=== PATIENT | female | born 1965 | race Caucasian/White ===

== ENCOUNTER 2020-05-01 15:07 | Outpatient (REF) | payer SELFPAY ==
[2020-05-01 15:26] LABS: COVID-19 Test Negative (Negative)
== END 2020-05-01 15:08 | disposition home or self-care (01) ==
LOC: HO.LAB 15:07
PROVIDERS: Visit Provider Internal Medicine
DX: Z20.828 Contact with and (suspected) exposure to other viral communicable diseases (principal)
CPT/HCPCS: 87635

== ENCOUNTER 2020-05-05 10:59 | Outpatient (REF) | payer SELFPAY ==
[2020-05-05 11:32] LABS: COVID-19 Test Negative (Negative)
== END 2020-05-05 11:00 | disposition home or self-care (01) ==
LOC: HO.LAB 10:59
PROVIDERS: Visit Provider Internal Medicine
DX: Z20.828 Contact with and (suspected) exposure to other viral communicable diseases (principal)
CPT/HCPCS: 87635

== ENCOUNTER 2021-07-24 07:13 | Emergency (ER) | payer OTHER, SELFPAY ==
[2021-07-24 07:17] VITALS: BP 162/78; PULSE 85; RESP 18; TEMP 35.8; O2SAT 100; BMI 25.0
--- NOTE | 2021-07-24 08:04 | ED_ITS ---
HPI - Eye Problem General Chief complaint: Skin/Abscess/Foreign Body Stated complaint: swollen r eye Time Seen by Provider: 07/24/21 08:00 Source: patient Mode of arrival: ambulatory Limitations: no limitations History of Present Illness HPI Narrative: Susan comes today to the hospital complaining of periorbital sw elling and redness around her right eye. Patient states that 4 days ago, patient had her eyebrows waxed. The next day, patient noted that her upper eyelids started getting erythematous, tender, states that she is so mild drainage coming from the space between the eyebrow and the upper eyelid. Pat kenneth denies fever chills. Patient states that the inside of her eye does not hurt, she has not seen any eye discharge. Patient denies seeing any vesicles. Patient states her vision is within normal limits Related Data Previous Rx's Medication Instructions Recorded amoxicillin 875 mg-potassium 1 tab PO BID #14 tab 07/24/21 clavulanate 125 mg tablet (Augmentin) sulfamethoxazole 800 1 tab PO BID #14 tab 07/24/21 mg-trimethoprim 160 mg tablet (Bactrim DS) Allergies Allergy/AdvReac Type Severity Reaction Status Date / Time No Known Allergies Allergy Verified 07/24/21 07:24 Review of Systems Review of Systems: Constitutional : No Weight loss, No Fever, No Chills, No Night Sweats, No Fatigue, No Malaise ENT/Mouth : No Hearing loss, No Ear Pain, No Nasal Congestion, No Sinus Pain, No Hoarseness, No sore throat, No Rhinorrhea, No Swallowing Difficulty Eyes: No Eye Pain, palpebral swelling, redness, no foreign body sensation Cardiovascular : No Chest Pain, No SOB, No Dyspnea on Exertion, No Orthopnea, No Edema, No Palpitations Respiratory : No Cough, No Sputum, No Wheezing, No Smoke Exposure, No Dyspnea Gastrointestinal : No Nausea, No Vomiting, No Diarrhea, No Constipation, No abdominal Pain, No Hematochezia, No Melena Genitourinary : no irregular bleeding, No Dysuria, No Urinary Frequency, No Hematuria, No Urinary Incontinence, No Urgency, No Flank Pain, No Urinary Flow Changes, No Hesitancy Musculoskeletal : No joint pain, No Myalgias, No Joint Swelling Skin : No Skin Lesions, No rash Neuro : No Weakness, No Numbness, No Paresthesias, No Loss of Consciousness, No Dizziness, No Headache Psych : No Anxiety/Panic, No Depression, No SI/HI/AH/VH, No Social Issues, Heme/Lymph: No Bruising, No Bleeding,No Lymphadenopathy Endocrine : No Polyuria, No Polydipsia, No Temperature Intolerance [facility] Past Medical History Medical History HTN (hypertension) Surgical History H/O: hysterectomy Social History Social History Advance Directives: No Advance Directives Information Provided: No Physical Exam Vital Signs: Vital Signs: Last Vital Signs Temp 96.5 F L 07/24/21 07:17 Pulse 85 07/24/21 07:17 Resp 18 07/24/21 07:17 BP 162/78 H 07/24/21 07:17 Pulse Ox 100 07/24/21 07:17 BMI result Body Mass Index 25.0 Const: Other: Appearance: Alert. Oriented X3. No acute distress. Eyes: Pupils equal, round and reactive to light. Cellulitis around the eye. Patient has normal range of motion with eye movements, painless, no erythema in the conjunctiva or sclera ENT: Pharynx normal. Neck: Normal inspection. Neck supple. No lymph nodes noted. No crepitus CVS: Normal heart rate and rhythm. Pulses normal. Normal S1 and S2 Respiratory: No respiratory distress. Breath sounds normal. No Wheezing. No rales Abdomen: Soft and nontender. No rigidity. No distention. Skin: Skin warm and dry. Normal skin color. Normal skin turgor. Extremities: No lower extremity edema. No lower extremity edema. No Lacerations. No Rash Neuro: Oriented X 3. No motor deficit. No sensory deficit. Moving all exter mities. No slurred speech. Course Course Course Narrative: I discussed the physical exam with the patient, patient likely has periorbital cellulitis. Patient was given Augmentin and Bactrim. Patient struck to return to the emergency room if she does not improve within 24 hours. DDX: Shingles Discharge Plan Discharge Clinical Impression: Periorbital cellulitis of right eye Patient Disposition: Home, Self-Care Instructions: Periorbital Cellulitis in Adults (ED) Additional Instructions: If your symptoms do not improve within 24 hours, you need to return to the emergency room. Please follow-up with your primary care physician tomorrow. If you have any worsening or new symptoms, please return to the emergency room or call 911 Prescriptions: New amoxicillin-pot clavulanate [Augmentin] 875-125 mg tablet 1 tab PO BID Qty: 14 RF: 0 sulfamethoxazole-trimethoprim [Bactrim DS] 800-160 mg tablet 1 tab PO BID Qty: 14 RF: 0
[2021-07-24] MEDS: Amoxicillin/Potassium Clav 875 MG TABLET PO (08:23)
[2021-07-24] MEDS: Sulfamethox/Trimeth 800/160 TABLET 1 TAB PO (08:23)
--- NOTE | 2021-07-24 08:30 | PC.NURSE ---
PT EVALUATED BY SIMA TENORIO. MEDICATED ORDERED RIGHT EYE SWELLING NOTED. PT UNABLE TO OPEN EYE. AWARE OF NEED FOR F/U WITH PCP OR TO RETURN TO ED IF SYMPTOMS WORSEN.
== END 2021-07-24 08:40 | disposition home or self-care (01) ==
PROVIDERS: Emergency Provider Emergency Medicine; PCP Nurse Practitioner Family
DX: L03.213 Periorbital cellulitis (principal); Z79.899 Other long term (current) drug therapy
CPT/HCPCS: 99283

== ENCOUNTER 2021-07-27 08:36 | Emergency (ER) | payer OTHER, SELFPAY ==
--- NOTE | ~2021-07-27 | CT_ITS ---
EXAMINATION: CT HEAD WITHOUT CONTRAST CLINICAL INFORMATION: Orbital cellulitis COMPARISON: None TECHNIQUE: Contiguous axial imaging was performed from the skull base to vertex without intravenous administration of contrast. This CT examination was performed using dose optimization techniques as appropriate, variously including the following: *Automated exposure control *Adjustment of mA and/or kV according to patient size (this includes techniques or standardized protocols for targeted exams where dose is matched to indication/reason for exam; i.e. extremities or head) *Use of iterative reconstruction technique DLP: 598 mGy-cm FINDINGS: Notable preseptal swelling on the right. No post septal or sinus involvement. There is no evidence of acute intracranial hemorrhage or territorial infarction. No abnormal mass effect or midline shift is seen. Alanis to white matter differentiation is well preserved. No extra-axial fluid collections are identified. The ventricles are normal in size. There is no abnormal attenuation within the brain parenchyma. The osseous structures and soft tissues are normal. The mastoid air cells and visualized portions of the paranasal sinuses are well aerated. CT/CT head/brain wo con IMPRESSION: No acute intracranial pathology. Preseptal right-sided soft tissue swelling presumably related to infection as above.
[2021-07-27 08:40] VITALS: BP 154/94; PULSE 100; RESP 18; TEMP 36.6; O2SAT 97; BMI 25.0
[2021-07-27 09:14] LABS: Hematocrit 38.8 % (37.0-47.0); Hemoglobin 13.1 g/dl (12.0-16.0); Mean Corpuscular HGB Conc 33.8 g/dl (31.0-35.0); Mean Corpuscular Hemoglobin 30.9 pg (27.0-33.0); Mean Corpuscular Volume 91.5 fL (80.0-98.0); Mean Platelet Volume 9.3 fL (9.4-12.3); Platelet Count 377 X10*3/uL (160-400); Red Blood Count 4.24 X10*6/uL (4.20-5.50); Red Cell Distribution Width 13.2 % (11.0-16.0); White Blood Count 10.2 X10*3/uL (4.8-10.8)
[2021-07-27 09:35] LABS: Anion Gap 14 (12-20); Blood Urea Nitrogen 21 mg/dL (9-16); Calcium 10.1 mg/dL (8.4-10.2); Carbon Dioxide 22 mmol/L (22-29); Chloride 103 mmol/L (96-108); Creatinine Clr Calc Pharmacy 49.8; Estimated Glomerular Filt Rate 45; Glucose Random 119 mg/dL (60-115); Potassium 4.1 mmol/L (3.3-5.1); Sodium 135 mmol/L (135-145)
--- NOTE | 2021-07-27 10:44 | ED_ITS ---
HPI - Eye Problem General Chief complaint: Eye Problems Stated complaint: Eye issues Time Seen by Provider: 07/27/21 09:09 Source: patient Mode of arrival: ambulatory History of Present Illness HPI Narrative: 55-year-old female past medical history of HTN, recently treated for periorbital cellulitis on Bactrim and Augmentin since 07/24/21, presenting to the ED complaining of persistent right upper eyelid swelling and pain. Reports compliance with antibiotics. Denies vision change/ loss, blurry vision, pain with EOMs, fever, chills, ear pain, throat pain, drainage from area Onset (ago): day(s) Duration: constant Location: right eye Eye Symptoms: redness and pain Related Data Previous Rx's Medication Instructions Recorded amoxicillin 875 mg-potassium 1 tab PO BID #14 tab 07/24/21 clavulanate 125 mg tablet (Augmentin) sulfamethoxazole 800 1 tab PO BID #14 tab 07/24/21 mg-trimethoprim 160 mg tablet (Bactrim DS) doxycycline hyclate 100 mg tablet 100 mg PO BID 7 Days #14 tab 07/27/21 Allergies Allergy/AdvReac Type Severity Reaction Status Date / Time No Known Allergies Allergy Verified 07/24/21 07:24 Review of Systems Review of Systems: Constitutional: No Fever, No Chills, No Night Sweats, No Fatigue, No Malaise ENT/Mouth: No Hearing loss, No Ear Pain, No Nasal Congestion, No Sinus Pain, No Hoarseness, No sore throat, No Rhinorrhea, No Swallowing Difficulty Eyes: + Eyelid Pain, + Swelling, + Redness, No Foreign Body, No Discharge, No Vision Changes Cardiovascular: No Chest Pain, No SOB, No Palpitations Respiratory: No Cough, No Dyspnea Gastrointestinal: No Nausea, No Vomiting, No Diarrhea, No Constipation, No Abdo saúl pain Genitourinary: No Dysuria, No Urgency, No Flank Pain Musculoskeletal: No joint pain, No Myalgias, No Joint Swelling Skin: No Skin Lesions, No rash Neuro: No Weakness, No Numbness, No Dizziness, No Headache Yes all other systems are reviewed and are negative [facility] Past Medical History Attestation statement: The following information was validated with the patient. Medical History HTN (hypertension) Surgical History H/O: hysterectomy Social History Social History Advance Directives: No Advance Directives Information Provided: No Patient : No Physical Exam Vital Signs: Vital Signs: Last Vital Signs Temp 97.8 F 07/27/21 08:40 Pulse 100 07/27/21 08:40 Resp 18 07/27/21 08:40 BP 154/94 H 07/27/21 08:40 Pulse Ox 97 07/27/21 08:40 BMI result Body Mass Index 25.0 Const: General: cooperative, healthy appearing and no acute distress Orientation/consciousness: patient oriented x3 Limitations: no limitations HENMT: Head: Yes normal to inspection and Yes atraumatic Ears: hearing grossly normal bilaterally General nose exam: Normal external nose present Face and sinus: Yes normal facial exam Eyes: Other: please refer to imaging above. Right upper eyelid erythema, swelling. + indurated, slight fluctuance to lateral aspect. No appreciable ocular involvement. EOMs intact without pain. PERRLA. No erythema to conjunctivae or sclera General: appearance normal, both eyes and all related structures Conjunctivae: conjunctivae normal Sclerae: sclerae normal Pupils: Equal, round and reactive pupils present EOM: EOMs intact bilaterally Direct Ophthalmoscopy: no photophobia Neck: Neck: Yes normal visual inspection, Yes full ROM and Yes no meningeal signs Resp: Effort & Inspection: normal respiratory effort and no respiratory distress Auscultation: clear to auscultation bilaterally Cardio: Rate: regular rate Heart sounds: S1 normal heart sound present and S2 normal heart sound present Skin: Rashes: no rashes Wounds: no wounds Neuro: General: patient oriented x3 and no meningeal signs Cranial nerves: Yes Equal, round and reactive pupils present Gait exam (Neuro): Normal gait present Extrem: General: Yes normal to inspection Course Course Course Narrative: - case discussed with Ophthalmology, Dr. Ayers who states usually lances in the OR however due to COVID-19 OR nonemergent procedures canceled > recommended CT to rule out optic involvement/sinusitis. -1146-- no leukocytosis. Labs otherwise unremarkable. CT head/brain wo con IMPRESSION: No acute intracranial pathology. Preseptal right-sided soft tissue swelling presumably related to infection as above. >> Discussed with Dr. Lawrence recommended trial p.o. Doxy versus admit for IV antibiotics, patient would like trial of p.o. Doxy. Discussed worrisome signs and symptoms and strict return precautions. Patient verbalized understanding feel safe for discharge home at this time MDM - Eye Problem MDM Narrative Medical decision making narrative: 55-year-old female past medical history of HTN, recently treated for periorbital cellulitis on Bactrim and Augmentin since 07/24/21, presenting to the ED complaining of persistent right upper eyelid swelling and pain. on exam vital signs stable, NAD, nontoxic appearing. Please refer to imaging above, and prior image in previous note for comparison. Concern for eyelid abscess vs persistent periorbital cellulitis. Low concern for orbital cellulitis. plan: Labs, ophthalmology consult Medical Records Attestation: I reviewed the patient's medical records. Lab Data Attestation: I reviewed the patient's lab results. Result diagrams: 07/27/21 09:07 07/27/21 09:07 Labs: Lab Results 07/27/21 07/27/21 07/27/21 Range/Units 09:07 09:07 11:27 WBC 10.2 (4.8-10.8) X10*3/uL RBC 4.24 (4.20-5.50) X10*6/uL Hgb 13.1 (12.0-16.0) g/dl Hct 38.8 (37.0-47.0) % MCV 91.5 (80.0-98.0) fL MCH 30.9 (27.0-33.0) pg MCHC 33.8 (31.0-35.0) g/dl RDW 13.2 (11.0-16.0) % Plt Count 377 (160-400) X10*3/uL MPV 9.3 L (9.4-12.3) fL Absolute Nucleated RBC 0.000 (0.0-0.012) X10*3/uL Nucleated RBC % (auto) 0.0 (0.0-0.2) /100WBC Sodium 135 (135-145) mmol/L Potassium 4.1 (3.3-5.1) mmol/L Chloride 103 (96-108) mmol/L Carbon Dioxide 22 (22-29) mmol/L Anion Gap 14 (12-20) BUN 21 H (9-16) mg/dL Creatinine 1.24 (0.5-1.4) mg/dL Estim Creat Clear Calc 49.8 Estimated GFR 45 Random Glucose 119 H (60-115) mg/dL Lactic Acid 1.0 (0.5-2.0) mmol/L Calcium 10.1 (8.4-10.2) mg/dL Discharge Plan Discharge Clinical Impression: Periorbital cellulitis, Abscess of eyelid, right Patient Disposition: Home, Self-Care Instructions: Periorbital Cellulitis in Adults (ED) Additional Instructions: your CT scan shows preseptal cellulitis/ swelling and infection, no evidence of sinusitis or ocular involvement. Stop taking previously prescribed Bactrim and start taking doxycycline if symptoms persist or worsen, you develop fever, vision change/ loss, pain with eye movement please return to the ED immediately apply warm compresses at home Prescriptions: New doxycycline hyclate 100 mg tablet 100 mg PO BID 7 Days Qty: 14 RF: 0 No Action amoxicillin-pot clavulanate [Augmentin] 875-125 mg tablet 1 tab PO BID Qty: 14 RF: 0 sulfamethoxazole-trimethoprim [Bactrim DS] 800-160 mg tablet 1 tab PO BID Qty: 14 RF: 0 Referrals: Avery Lawrence [Physician] - 3 days Stand Alone Forms: Work/School Release Interventions: ED Discharge Assessment Last Done: 07/27/21 12:19 Discharge Date/Time: 07/27/21 12:19
== END 2021-07-27 12:19 | disposition home or self-care (01) ==
PROVIDERS: Physician Assistant; Emergency Provider Emergency Medicine
DX: L03.213 Periorbital cellulitis (principal); H00.031 Abscess of right upper eyelid; H57.11 Ocular pain, right eye; I10 Essential (primary) hypertension
CPT/HCPCS: 36415; 70450; 80048; 83605; 85027; 87040; 99283; 99284